=== PATIENT | female | born 1995 | race Caucasian/White ===

== ENCOUNTER 2021-01-04 09:17 | Emergency (ER) | payer OTHER ==
[~2021-01-04] VITALS: Ht 167.6 cm; Wt 95.2 kg
[2021-01-04] MEDS ORDERED: PREN1CHW6 PO (09:25)
[2021-01-04 12:15] VITALS: O2SAT 100
[2021-01-04 12:56] LABS: RSV AMPLIFICATION NEGATIVE (NEGATIVE)
[2021-01-04 14:30] VITALS: BP 132/71
== END 2021-01-04 14:32 | disposition home or self-care (01) ==
LOC: M ED 09:17
DX: O26.891 Other specified pregnancy related conditions, first trimester (principal); Z3A.01 Less than 8 weeks gestation of pregnancy; Z79.899 Other long term (current) drug therapy; Z88.0 Allergy status to penicillin

== ENCOUNTER 2021-01-29 17:23 | Emergency (ER) | payer OTHER ==
[~2021-01-29] VITALS: Ht 170.2 cm; Wt 94.1 kg
[~2021-01-29 17:23] MED LIST: PREN1CHW6 PO
[2021-01-29] MEDS ORDERED: NS 1,000 ML IV ONE (19:10)
[2021-01-29] MEDS ORDERED: METOCLOPRAMIDE INJ 10MG/2ML VIAL (J2765 PER 1) IV ONE (19:10)
[2021-01-29 20:15] LABS: MEAN CORPUSCULAR HEMOGLOBIN 29.5 pg (27.0-33.0); MEAN CORPUSCULAR HGB CONC 32.5 g/dl (32.0-36.5); MEAN CORPUSCULAR VOLUME 90.9 fl (80.0-96.0); PLATELET COUNT, AUTOMATED 149 10^3/uL (150-450); WHITE BLOOD COUNT 4.5 10^3/uL (4.0-10.0)
[2021-01-29 20:45] LABS: ATYPICAL LYMPH 9 % (0-5); LYMPHOCYTES 23 % (16-44); MONOCYTES 4 % (0-5); NEUTROPHILS 52 % (28-66)
[2021-01-29 20:46] LABS: OVALOCYTES 1+; PLATELET ESTIMATE NORMAL (NORMAL); POIKILOCYTOSIS 1+
[2021-01-29 21:02] LABS: ALBUMIN 3.4 GM/DL (3.2-5.2); ALT/SGPT 55 U/L (12-78); BILIRUBIN,DIRECT 0.1 MG/DL (0.0-0.2); BILIRUBIN,TOTAL 0.2 MG/DL (0.2-1.0); BLOOD UREA NITROGEN 8 MG/DL (7-18); CARBON DIOXIDE LEVEL 26 MEQ/L (21-32); CHLORIDE LEVEL 106 MEQ/L (98-107); CREATININE FOR GFR 0.55 MG/DL (0.55-1.30); GLOMERULAR FILTRATION RATE > 60.0 (>60); GLUCOSE, FASTING 78 MG/DL (70-100); LIPASE 78 U/L (73-393); POTASSIUM SERUM 3.7 MEQ/L (3.5-5.1); SODIUM LEVEL 139 MEQ/L (136-145); TOTAL PROTEIN 7.2 GM/DL (6.4-8.2)
--- NOTE | 2021-01-29 21:59 | REPVR ---
PROCEDURE INFORMATION: Exam: US First Trimester, Transabdominal Exam date and time: 01/29/2021 9:15 PM Age: 25 years old Clinical indication: complicated by abdominal or pelvic pain; Lower; First trimester; Gestational age or lmp: 12/07/2020; ; Additional info: Pevlic cramping; Lmp-12/14/20 TECHNIQUE: Imaging protocol: Real-time transabdominal obstetrical ultrasound of the maternal pelvis and a first trimester , less than 14 weeks 0 days, with image documentation. COMPARISON: No relevant prior studies available. FINDINGS: Gestation: An intrauterine gestational sac is identified. There is a pole and estimated at 10 weeks 3 days utilizing crown-rump length. There is cardiac activity at 173 bpm. It appears that the placenta is forming along the posterior aspect of the uterus. This is very early in gestation and all parameters regarding the fetus cannot be assessed and therefore a complete survey should be done at 18-20 weeks gestation. Placenta: At the present time the placental tissue is contiguous with the internal cervical os and this should be re-evaluated. Amniotic fluid: The amount of amniotic fluid appears adequate. Uterus: The uterus measures 11.3 cm in length by 6.4 cm in AP dimension. Cervix: Unremarkable. Right adnexa: The right ovary is difficult to identify. Left adnexa: The left ovary measures 2.2 cm in length by 1 cm in thickness Intraperitoneal space: There is no evidence of free fluid in the cul-de-sac. Urinary bladder: There is a small amount of urine in the urinary bladder. IMPRESSION: 1. There is an intrauterine gestational sac. 2. pole estimated at 10 weeks 3 days with good cardiac motion at 174 bpm. 3. This is very early in gestation and all parameters cannot be assessed there for a complete survey should be done at 18-20 weeks gestation. Electronically signed by: John Augustin On 01/29/2021 21:58:57 PM
[2021-01-29] MEDS ORDERED: MACR100C43 PO (22:29)
[2021-01-29] MEDS ORDERED: REGL10TA6 PO (22:29)
[2021-01-29] MEDS ORDERED: NITROFURANTOIN (MACROBID) 100 MG CAP PO ONE (23:10)
[2021-01-29 23:16] VITALS: BP 118/72
== END 2021-01-29 23:18 | disposition home or self-care (01) ==
LOC: M ED 17:23
DX: O98.511 Other viral diseases complicating pregnancy, first trimester (principal); U07.1 COVID-19; O23.41 Unspecified infection of urinary tract in pregnancy, first trimester; Z3A.10 10 weeks gestation of pregnancy; Z88.0 Allergy status to penicillin
CPT/HCPCS: 76801; 80048; 80076; 81001; 83690; 85025; 96361; 96374; 99284; J2765